=== PATIENT | female | born 1945 | race Caucasian/White ===

== ENCOUNTER 2021-10-04 11:23 | Emergency (ER) | payer MEDICARE, OTHER ==
[~2021-10-04] VITALS: Ht 152.4 cm; Wt 121.1 kg
--- NOTE | 2021-10-04 11:40 | NUR ---
BIB [facility]89 FROM HOME C/O PROGRESSIVE L UPPE REXTREMITY SWELLING/BRUISE AND PAIN X 2 DAYS S/P TAKING A BATH AND REACHING FOR HER BACK. AAOX4, BREATHING EVEN AND UNLABORED. ASSISTED TO ER BED 15.
[2021-10-04] MEDS ORDERED: HYDROMORPHONE 1 MG/1 ML DISP.SYRIN IV ONE (12:00)
[2021-10-04] MEDS ORDERED: HYDROMORPHONE 1 MG/1 ML DISP.SYRIN ONE ×2 (12:05→16:07)
--- NOTE | 2021-10-04 12:14 | NUR ---
xray at bedside
--- NOTE | 2021-10-04 12:45 | NUR ---
BS 189
--- NOTE | 2021-10-04 13:10 | NUR ---
LAB AT BEDSIDE
--- NOTE | 2021-10-04 13:13 | NUR ---
ULTRASOUND AT BEDSIDE
[2021-10-04 13:39] LABS: EOSINOPHILS % (AUTO) 0.3 % (0.0-6.0); HEMATOCRIT 36 % (33-45); LYMPHOCYTES % (AUTO) 8.3 % (20.0-44.0); MEAN CORPUSCULAR HGB CONC 33 g/dl (31.0-36.0); MEAN CORPUSCULAR VOLUME 93 fL (82-100); MONOCYTES # (AUTO) 0.7 K/uL (0.1-1.30); MONOCYTES % (AUTO) 5.5 % (2.0-12.0); NEUTROPHILS # (AUTO) 10.6 K/uL (1.8-8.9); NEUTROPHILS % (AUTO) 85.9 % (43.0-81.0); PLATELET COUNT (AUTO) 166 K/uL (150-450); RED BLOOD CELL COUNT(AUTO) 3.84 MIL/uL (4.0-5.2); WHITE BLOOD COUNT (AUTO) 12.3 K/uL (4.3-11.0)
[2021-10-04 13:50] LABS: CALCIUM, SERUM 8.7 mg/dL (8.5-10.1); CREATININE 0.8 mg/dL (0.6-1.3); POTASSIUM 3.9 mmol/L (3.5-5.1)
[2021-10-04] MEDS ORDERED: IOHEXOL-350 100 ML VIAL IV ONE (14:29)
[2021-10-04] MEDS ORDERED: IV NS 0.9% 250 ML IV ONE (14:29)
[2021-10-04] MEDS ORDERED: CT SWABBABLE VALVE TRANS SET 1 EA INFUS.SET MC ONE (14:29)
--- NOTE | 2021-10-04 14:50 | NUR ---
pt taken to ct
[2021-10-04] MEDS ORDERED: HYDROCODONE/APAP 5/325MG TABLET ONE (15:51)
[2021-10-04] MEDS ORDERED: OXYC5TAB3 PO (15:54)
[2021-10-04] MEDS ORDERED: HYDROMORPHONE 1 MG/1 ML DISP.SYRIN IM ONE (16:00)
--- NOTE | 2021-10-04 16:00 | NUR ---
IV removed. Catheter intact and site benign. Pressure and 4x4 applied to site. No bleeding noted.
--- NOTE | 2021-10-04 16:17 | NUR ---
Patient discharged to home in stable condition. Written and verbal after care instructions given. Patient verbalizes understanding of instruction.
[2021-10-04 16:19] VITALS: BP 134/69
== END 2021-10-04 16:19 | disposition home or self-care (01) ==
LOC: ER 11:31
DX: S40.022A Contusion of left upper arm, initial encounter (principal); M79.602 Pain in left arm; I10 Essential (primary) hypertension; M06.9 Rheumatoid arthritis, unspecified; X58.XXXA Exposure to other specified factors, initial encounter; Y93.89 Activity, other specified; Y92.89 Other specified places as the place of occurrence of the external cause; Y99.8 Other external cause status
CPT/HCPCS: 36415; 73030; 73060; 73070; 73206; 80048; 82550; 85025; 93971; 96372; 96374; 99285; J1170 ×2; J7050; Q9967